=== PATIENT | female | born 1960 | race Caucasian/White ===

== ENCOUNTER 2019-03-06 06:31 | Inpatient (IN) ==
--- NOTE | 2019-02-06 15:59 | PAT Medication Instructions ---
Medication Instructions Date of Service February 06, 2019 Home Medications atorvastatin 5 mg PO PM ferrous sulfate [iron] 325 mg PO Q OTHER DAY fluoxetine 60 mg PO QAM folic acid 400 mcg PO QPM hydroxychloroquine [Plaquenil] 200 mg PO BID lansoprazole 30 mg PO QAM meloxicam 7.5 mg PO QAM oxycodone 5 mg PO Q6H PRN pilocarpine HCl [Salagen (pilocarpine)] 5 mg PO TID pramipexole [Mirapex] 1 mg PO HS sumatriptan succinate 100 mg PO UD PRN ASK your surgeon for instructions meloxicam 7.5 mg PO QAM ASK your prescriber and surgeon hydroxychloroquine [Plaquenil] 200 mg PO BID STOP taking 24 hours before surgery pramipexole [Mirapex] 1 mg PO HS DO NOT take the morning of surgery ferrous sulfate [iron] 325 mg PO Q OTHER DAY folic acid 400 mcg PO QPM Take morning of surgery With a small sip of water, OTHERWISE NOTHING TO EAT OR DRINK AFTER MIDNIGHT: fluoxetine 60 mg PO QAM lansoprazole 30 mg PO QAM oxycodone 5 mg PO Q6H PRN (okay to take up to 4 hours prior to surgery if needed) pilocarpine HCl [Salagen (pilocarpine)] 5 mg PO TID (okay to continue per anesthesiologist, Dr. Lu) sumatriptan succinate 100 mg PO UD PRN (if needed) Take evening before surgery atorvastatin 5 mg PO PM folic acid 400 mcg PO QPM oxycodone 5 mg PO Q6H PRN (if needed) pilocarpine HCl [Salagen (pilocarpine)] 5 mg PO TID sumatriptan succinate 100 mg PO UD PRN (if needed) Other Notes If you have any questions please call us at [phone] or [phone] or [phone] or [phone]
--- NOTE | 2019-02-07 10:07 | Anesthesiology Consultation ---
Date of Service February 07, 2019 Assessment & Plan (1) Encounter for pre-operative examination: - Pilocarpine- patient taking this for Sjogren's. Discussed with Dr. Lu: okay for patient to continue uninterrupted perioperatively. Chart Review Chart Review: Pending: Refer to Additional Notes / Consult section (pending preop testing (labs, EKG, CXR)) and Patient seen in Pre Admission Testing Teaching & Discussion Pre-Anesthesia Teaching/Discussion Notes: Instructed NPO after midnight before surgery,except medications with 15 cc of water. Medication instructions provided according to the PAT guidelines. History Surgery Operation Date: 03/06/19 07:00 Proposed Procedures p Bilateral Total Knee Arthroplasty - John Russo DO Height/Weight Height: 5 ft 3.5 in Weight: 85.8 kg Allergies Allergy/AdvReac Type Severity Reaction Status Date / Time strawberry Allergy Anaphylaxis Verified 01/31/19 10:02 Sulfa (Sulfonamide Allergy Unknown Verified 01/31/19 09:47 Antibiotics) Medications Home Medications Medication Instructions Recorded Confirmed Last Taken atorvastatin 5 mg PO PM 01/31/19 01/31/19 Unknown ferrous sulfate [iron] 325 mg PO Q OTHER DAY 01/31/19 01/31/19 Unknown fluoxetine 60 mg PO QAM 01/31/19 01/31/19 Unknown folic acid 400 mcg PO QPM 01/31/19 01/31/19 Unknown hydroxychloroquine [Plaquenil] 200 mg PO BID 01/31/19 01/31/19 Unknown lansoprazole 30 mg PO QAM 01/31/19 01/31/19 Unknown meloxicam 7.5 mg PO QAM 01/31/19 01/31/19 Unknown oxycodone 5 mg PO Q6H PRN 01/31/19 01/31/19 Unknown pilocarpine HCl [Salagen 5 mg PO TID 01/31/19 01/31/19 Unknown (pilocarpine)] pramipexole [Mirapex] 1 mg PO HS 01/31/19 01/31/19 Unknown sumatriptan succinate 100 mg PO UD PRN 01/31/19 01/31/19 Unknown Past Medical History Medical History Factor V Leiden Discovered due to family history (diagnosed in daughter 2/2 workup for multiple miscarriages)- no personal bleeding/clotting issues; on folic acid GERD (gastroesophageal reflux disease) controlled [place] (hard of hearing) History of skin cancer s/p excision Hyperlipidemia Migraine Obesity Osteoarthritis Restless leg syndrome Sjogren's disease on pilocarpine/plaquenil Sleep apnea CPAP Exercise / Class Metabolic Activity II 4-5 Yardwork/Stairs/Walk up hill Past Family History Family History Brother Family history of diabetes mellitus Sister Family history of diabetes mellitus Grandmother (Paternal) Family history of diabetes mellitus Mother Throat cancer Past Surgical History Surgical History H/O hysterectomy with unilateral oophorectomy History of colonoscopy History of esophagogastroduodenoscopy (EGD) History of eye surgery Rt History of tubal ligation Status post myringotomy with insertion of tube Past Anesthesia History No Family Hx of Anesthesia Complications and Other "Slow to wake" x 1 episode with tubal ligation. History of PONV No Hx of PONV and Hx of Motion Sickness Social History Smoking Status: Never smoker Do You Dip or Chew Tobacco: No Hx Alcohol Use: Yes alcohol intake frequency: holidays/special occasions only Hx Substance Use: No substance use type: does not use Review of Systems Reflux controlled. Patient denies chest pain, shortness of breath, dyspnea on exertion, cough, wheezing, palpitations. Physical Exam Vital Signs VITALS BP 137/82 P 73 TEMP 97.9 SP02 96%RA RESP 16 PHYSICAL Mildly decreased cervical extension. Full TMJ range of motion. TMD 3 finger breaths Mallampati Score 3 Dentition: several missing side/molars, upper front right tooth "thin" but not loose Lungs: clear throughout to auscultation Cardiac: regular rate and rhythm, no murmurs noted Spine: normal Carotid arteries: negative bruit Extremities: no edema
--- NOTE | 2019-02-07 11:23 | XRay Report ---
XR chest Pre-admission PA/Lat HISTORY: Preop. COMPARISON: None. FINDINGS: The lungs are clear. Cardiac silhouette is normal in size. No pleural effusions. No pneumot horax. IMPRESSION: No acute process. Electronically signed by: David Taylor M.D. 02/07/2019 11:22 AM
--- NOTE | 2019-02-07 13:09 | History & Physical Report ---
Date of Service February 07, 2019 date of surgery: 03-06-19 Assessment & Plan (1) Bilateral primary osteoarthritis of knee: Risks and benefits of procedure discussed in detail today, patient would like to proceed with Bilateral total knee replacements at [facility] as scheduled. will obtain medical clearance prior to surgery as well as obtain PATs at [facility]. Will place on Xarelto x 1 month post op, f/u 2 weeks post op for routine post-operative care and x-ray, sooner if having any problems. will make arrangements for HHPT at the time of discharge. At this point in time, has failed conservative measures and would like to proceed with surgical intervention. History of Present Illness Chief Complaint: bilateral knee pain Primary Care Provider: Alexi Montaño Ms Hernandez is a 58 year old female who complains of bilateral knee pain, presents for pre-op evaluation prior to bilateral total knee replacements at [facility]. She presents with pain and decreased range of motion in both of her knees. She states that the symptoms have been chronic non-traumatic and the symptoms occur intermittently. Currently the patient states that the symptoms are moderate-severe. The pain is described as aching, sharp and throbbing. The symptoms occur intermittently. She rates her current pain as 7/10. The symptoms are aggravated by ascending stairs, descending stairs, daily activities, driving, first steps while awake, kneeling, movement, repetitive activities, sleeping in any position, squatting, standing and walking. In addition to knee pain, she is also experiencing decreased mobility, difficulty bending, difficulty going to sleep, limping, nighttime awakening, pain, stiffness, tenderness and weakness. Prior NSAIDs include Mobic and naproxen. She has been treated with a corticosteroid injection on the right and left side equally. Patient has been treated with previous visco supplementation. Allergies Allergy/AdvReac Type Severity Reaction Status Date / Time strawberry Allergy Anaphylaxis Verified 01/31/19 10:02 Sulfa (Sulfonamide Allergy Unknown Verified 01/31/19 09:47 Antibiotics) Home Medications Home Medications Medication Instructions Recorded Confirmed Type atorvastatin 5 mg PO PM 01/31/19 01/31/19 History ferrous sulfate [iron] 325 mg PO Q OTHER DAY 01/31/19 01/31/19 History fluoxetine 60 mg PO QAM 01/31/19 01/31/19 History folic acid 400 mcg PO QPM 01/31/19 01/31/19 History hydroxychloroquine [Plaquenil] 200 mg PO BID 01/31/19 01/31/19 History lansoprazole 30 mg PO QAM 01/31/19 01/31/19 History meloxicam 7.5 mg PO QAM 01/31/19 01/31/19 History oxycodone 5 mg PO Q6H PRN 01/31/19 01/31/19 History pilocarpine HCl [Salagen 5 mg PO TID 01/31/19 01/31/19 History (pilocarpine)] pramipexole [Mirapex] 1 mg PO HS 01/31/19 01/31/19 History sumatriptan succinate 100 mg PO UD PRN 01/31/19 01/31/19 History Past Med/Surg History Medical History Factor V Leiden Discovered due to family history (diagnosed in daughter 2/2 workup for multiple miscarriages)- no personal bleeding/clotting issues; on folic acid GERD (gastroesophageal reflux disease) controlled [place] (hard of hearing) History of skin cancer s/p excision Hyperlipidemia Migraine Obesity Osteoarthritis Restless leg syndrome Sjogren's disease on pilocarpine/plaquenil Sleep apnea CPAP Surgical History H/O hysterectomy with unilateral oophorectomy History of colonoscopy History of esophagogastroduodenoscopy (EGD) History of eye surgery Rt History of tubal ligation Status post myringotomy with insertion of tube Family History Brother Family history of diabetes mellitus Sister Family history of diabetes mellitus Grandmother (Paternal) Family history of diabetes mellitus Mother Throat cancer Social History Preferred Language: Bulgarian Communication Ability: Effective Soap Press Feeder Required: No Beliefs That Will Affect Care: Faith Faith Beliefs: Religious Current Living Situation: Spouse Other Information That Helps Us Care for You: No Feels Safe at Home: Yes Safety Concerns: Feels Safe At This Time Smoking Status: Never smoker Do You Dip or Chew Tobacco: No ; Second Hand Exposure: Yes (as a child) ; Hx Alcohol Use: Yes Hx Substance Use: No Review of Systems Review of Systems: All systems reviewed & are unremarkable except as noted in HPI & below Constitutional: no fever, no chills and no sweats Respiratory: no cough and no dyspnea Cardiovascular: no chest pain, no dyspnea and no orthopnea Gastrointestinal: no abdominal pain, no nausea and no vomiting Musculoskeletal: as per Subjective / HPI Physical Exam Physical Exam: HT: 5ft 3in Wt: 85.8kg BP: 130/88 Pulse: 72 Constitutional: WD/WN, vitals as above no acute distress Respiratory: normal respiratory effort, lungs clear to auscultation no respiratory distress, no labored breathing and does not use accessory muscles Cardiovascular: RRR, no murmur, no edema Gastrointestinal (Abdomen): normal bowel sounds, soft, nontender, no hepatosplenomegaly Musculoskeletal: Bilateral knee Physical exam- she has neutral alignment bilaterally, there is no atrophy or ecchymosis noted, she does have +1 effusion in both of her knees, she has tenderness to both medial and lateral joint lines to her right knee, more medial sided tenderness to the left knee. negative patellar apprehension, she does have crepitation noted to both knees with active ROM. bilateral knees stable to valgus and varus stress, ayse negative, posterior drawer negative. Range of motion right knee 0/3/110, left knee 0/3/115. her lower extremities are neurovascularly intact, calf soft and non tender, DP pulse +2 bilaterally. Results & Data Laboratory Results Laboratory Results WBC 6.43 K/uL (4.8-10.8) 02/07/19 10:51 RBC 5.01 M/uL (4.2-5.4) 02/07/19 10:51 Hgb 14.0 g/dL (12.0-16.0) 02/07/19 10:51 Hct 43.4 % (37-47) 02/07/19 10:51 MCV 86.6 fL (80-100) 02/07/19 10:51 MCH 27.9 pg (25-34) 02/07/19 10:51 MCHC 32.3 g/dL (32-36) 02/07/19 10:51 RDW Std Deviation 43.0 fL (36.4-46.3) 02/07/19 10:51 RDW Coeff of Ruby 13.6 % (11.5-14.5) 02/07/19 10:51 Plt Count 272 K/uL (130-400) 02/07/19 10:51 MPV 10.6 fL (7.4-10.4) H 02/07/19 10:51 Immature Gran % (Auto) 0.3 % 02/07/19 10:51 Neut % (Auto) 65.9 % 02/07/19 10:51 Lymph % (Auto) 19.3 % 02/07/19 10:51 Rich % (Auto) 7.3 % 02/07/19 10:51 Eos % (Auto) 6.4 % 02/07/19 10:51 Baso % (Auto) 0.8 % 02/07/19 10:51 Immature Gran # (Auto) 0.02 K/uL (0.00-0.02) 02/07/19 10:51 Neut # (Auto) 4.24 K/uL (1.4-6.5) 02/07/19 10:51 Lymph # (Auto) 1.24 K/uL (1.2-3.4) 02/07/19 10:51 Rich # (Auto) 0.47 K/uL (0.11-0.59) 02/07/19 10:51 Eos # (Auto) 0.41 K/uL (0-0.5) 02/07/19 10:51 Baso # (Auto) 0.05 K/uL (0-0.2) 02/07/19 10:51 PT 10.4 Seconds (9.0-12.0) 02/07/19 10:51 INR 1.0 (0.9-1.1) 02/07/19 10:51 APTT 27.2 Seconds (21.0-31.0) 02/07/19 10:51 PTT Ratio 1.0 02/07/19 10:51 Sodium 140 mmol/L (136-145) 02/07/19 10:51 Potassium 3.7 mmol/L (3.5-5.1) 02/07/19 10:51 Chloride 105 mmol/L (98-107) 02/07/19 10:51 Carbon Dioxide 32 mmol/L (21-32) 02/07/19 10:51 Anion Gap 3.0 (3-11) 02/07/19 10:51 BUN 26 mg/dl (7-18) H 02/07/19 10:51 Creatinine 0.81 mg/dl (0.6-1.2) 02/07/19 10:51 Est Cr Clr Drug Dosing 77.5 ml/min 02/07/19 10:51 Est GFR ( Amer) 91.5 02/07/19 10:51 Est GFR (Non-Af Amer) 78.9 02/07/19 10:51 BUN/Creatinine Ratio 32.0 (10-20) H 02/07/19 10:51 Glucose 88 mg/dl (70-99) 02/07/19 10:51 Estimat Average Glucose 126 mg/dl 02/07/19 10:51 Hemoglobin A1c 6.0 % (4.5-5.6) H 02/07/19 10:51 Calcium 9.0 mg/dl (8.5-10.1) 02/07/19 10:51 Albumin 3.5 gm/dl (3.4-5.0) 02/07/19 10:51 Urine Color Yellow 02/07/19 10:51 Urine Appearance Clear (Clear) 02/07/19 10:51 Urine pH 6.5 (4.5-7.5) 02/07/19 10:51 Ur Specific [place] 1.023 (1.000-1.030) 02/07/19 10:51 Urine Protein Negative (Negative) 02/07/19 10:51 Urine Glucose (UA) Negative (Negative) 02/07/19 10:51 Urine Ketones Negative (Negative) 02/07/19 10:51 Urine Blood Negative (Negative) 02/07/19 10:51 Urine Nitrite Negative (Negative) 02/07/19 10:51 Urine Bilirubin Negative (Negative) 02/07/19 10:51 Urine Urobilinogen Negative (Negative) 02/07/19 10:51 Ur Leukocyte Esterase Negative (Negative) 02/07/19 10:51 Blood Type O Positive 02/07/19 10:51 Antibody Screen NEGATIVE 02/07/19 10:51 Diagnostic Findings Bilateral knee x-rays from December 2018 showing complete loss joint space medial compartments bilateral knees with overall varus alignment, there is also narrowing of the lateral compartment and patellofemoral joint. there is osteophyte formation, subchondral sclerosis noted, no loose bodies, no acute bony pathology. overall impression tricompartmental degenerative changes to the right knee.
[2019-02-07 13:15] LABS: Basophils # (auto) 0.05 K/uL (0-0.2); Basophils % (auto) 0.8 %; Eosinophils # (auto) 0.41 K/uL (0-0.5); Eosinophils % (auto) 6.4 %; Hematocrit (blood only) 43.4 % (37-47); Immature Granulocytes # (auto) 0.02 K/uL (0.00-0.02); Immature Granulocytes % (auto) 0.3 %; Lymphocytes # (auto) 1.24 K/uL (1.2-3.4); Lymphocytes % (auto) 19.3 %; Mean Corpuscular Hemoglobin 27.9 pg (25-34); Mean Corpuscular Hgb Conc 32.3 g/dL (32-36); Mean Corpuscular Volume 86.6 fL (80-100); Mean Platelet Volume 10.6 fL (7.4-10.4); Monocytes # (auto) 0.47 K/uL (0.11-0.59); Monocytes % (auto) 7.3 %; Neutrophils # (auto) 4.24 K/uL (1.4-6.5); Neutrophils % (auto) 65.9 %; Platelet Count 272 K/uL (130-400); RDW Coefficient of Variation 13.6 % (11.5-14.5); Red Blood Count 5.01 M/uL (4.2-5.4); White Blood Count 6.43 K/uL (4.8-10.8)
[2019-02-07 13:16] LABS: Appearance Urine Clear (Clear); Bilirubin Urine Negative (Negative); Blood Urine Negative (Negative); Color Urine Yellow; Glucose Urine UA Negative (Negative); Ketones Urine Negative (Negative); Leukocyte Esterase Urine Negative (Negative); Nitrite Urine Negative (Negative); Protein Urine Negative (Negative); Specific Gravity Urine 1.023 (1.000-1.030); Urobilinogen Urine Negative (Negative); pH Urine 6.5 (4.5-7.5)
[2019-02-07 13:24] LABS: Albumin Level 3.5 gm/dl (3.4-5.0); Creatinine Clr Calc Pharmacy 77.5 ml/min; Est GFR (African American) 91.5; Est GFR (Non-African American) 78.9; Potassium 3.7 mmol/L (3.5-5.1)
[2019-02-07 13:26] LABS: Partial Thromboplastin Time 27.2 Seconds (21.0-31.0); Prothrombin Time 10.4 Seconds (9.0-12.0)
[2019-02-07 13:32] LABS: Estimated Average Glucose 126 mg/dl
[~2019-03-06 06:31] MED LIST: ACETAMINOPHEN 500 MG TAB PO SCH; BUPIVACAINE 0.5 % 5 MG/1 ML PF 10ML VIAL ONE; BUPIVACAINE/EPINEPHRINE 0.25% 1:200,000 30 ML VIAL ONE; CEFAZOLIN 2000MG 2,000 MG/15 ML SYR IV SCH; FAMOTIDINE 20 MG TAB PO SCH; GABAPENTIN 600 MG DOSE PO SCH; LR 500ML BOLUS, THEN 15ML/HR IV SCH; METOCLOPRAMIDE HCL 10 MG TABLET PO SCH; ROPIVACAINE 0.5% HCL/PF 150 MG, BUPIVACAINE 0.5% MPF 30 ML, EPINEPHrine 30MG/30ML (OR U... INSTIL SCH; dexAMETHasone 4 MG TAB PO SCH
[2019-03-06] MEDS ORDERED: ONDANSETRON INJ 2 MG/ML 2 ML VIAL ONE (06:51)
[2019-03-06] MEDS ORDERED: LIDOCAINE HCL 2% 2 ML VIAL/AMP(20MG/ML) INFIL ONE ×2 (06:51→09:14)
[2019-03-06] MEDS ORDERED: MIDAZOLAM HCL 1 MG/ML 2ML VIAL ONE ×2 (06:52→08:28)
[2019-03-06] MEDS ORDERED: PROPOFOL IV EMULSION 10 MG/ML 20 ML VIAL IV ONE ×2 (06:52→09:14)
[2019-03-06] MEDS ORDERED: fentaNYL citrate 100 MCG/2 ML VIAL ONE (06:52)
[2019-03-06] MEDS ORDERED: TRANEXAMIC ACID 1,000 MG in 0.9 % SODIUM CHLORIDE 100 ML IV ONE ×2 (07:04→07:15)
[2019-03-06] MEDS ORDERED: ORTHO JOINT ANESTHETIC ONE (07:05)
[2019-03-06] MEDS ORDERED: BACITRACIN INJ 50,000 UNIT VIAL ONE (07:06)
--- NOTE | 2019-03-06 07:06 | History & Physical Bridge Note ---
Date of Service March 06, 2019 History & Physical Bridge Note I have examined the patient, reviewed the History & Physical and in the interval since the performance of the History & Physical I have noted the following changes of clinical significance: no changes noted
[2019-03-06] MEDS ORDERED: fentaNYL citrate 100 MCG/2 ML VIAL IV PRN (07:33)
[2019-03-06] MEDS ORDERED: ePHEDrine sulfate 50 MG/ML AMP IV PRN (07:33)
[2019-03-06] MEDS ORDERED: ATROPINE SULFATE 0.1 MG/ML 10ML SYR IV PRN (07:33)
[2019-03-06] MEDS ORDERED: HYDROmorphone INJ 1 MG/ML SYRINGE IV PRN (07:33)
[2019-03-06] MEDS ORDERED: ONDANSETRON INJ 2 MG/ML 2 ML VIAL IV PRN ×2 (07:33→12:47)
--- NOTE | 2019-03-06 10:07 | Operative Report ---
Post Operative Report Pre & Post Diagnosis Operation Date: 03/06/19 08:20 Pre-Op Diagnosis: Primary Osteoarthritis, Bilateral Knees Post-Op Diagnosis: Primary Osteoarthritis, Bilateral Knees I identified the patient and participated in the time-out.: Yes Procedure Operation Date: 03/06/19 08:20 Actual Procedures p Bilateral Total Knee Arthroplasty(Bilateral) utilizing [employer] journey 2 patient matched total knee arthroplasty right size 5 femur 3 tibia 11 polyethylene 29 oval patella left size 5 femur 3 tibia 10 polyethylene 29 oval patella- John Russo DO Surgeon John Russo DO [employer] Aurelio JEAN BAPTISTE Estimated Blood Loss 10 (5ml right knee, 5ml left knee) Findings Consistent with Post-Op Diagnosis Patient presents with severe end-stage tricompartmental degenerative joint disease bilateral knees varus alignment subchondral bone sclerosis with marginal osteophyte subchondral cystic changes moderate to large effusions varus alignment no response to conservative management Specimens Bone and cartilage Drains Medium bore Hemovac Complications none Disposition Accompanied Patient To Recovery: No Disposition: Recovery Room Indications Patient presents with bilateral severe end-stage DJD no response to conservative management for bilateral total knee arthroplasty she had the above intraoperative findings noted she is failed attempted corticosteroid injections Visco supplementation relative rest activity modification and bracing she presents for total knee arthroplasty bilaterally Description of Procedure After proper prepping and draping and verification of the patientAfter proper prepping and draping of the bilateral lower extremities, an anterior midline i ncision was made over the region of the extensor extensor mechanism of the left knee. After meticulous hemostasis was obtained and maintained in subcutaneous tissues a medial parapatellar incision was made The patella was subluxed lateralward the medial lateral gutter were cleaned from any hypertrophic synovitis and scar tissue of the distal femoral block was placed and the distal femoral osteotomy cut was made subsequently the chamfers anterior and posterior osteotomy cuts were made utilizing the 4-in-1 block the tibia was subsequently subluxed anteriorward medial and ateral meniscal remnants were excised in their entirety remnants of the anterior and posterior cruciate ligaments were excised in their entirety excellent exposure of the proximal tibia was obtained the tibial osteotomy guide was placed on the proximal tibial osteotomy cut was made once again the knee was irrigated with copious amounts of sterile saline solution the patella was subsequently everted lateralward thickened scar tissue around the patella was removed the patella was subsequently cut utilizing a freehand technique and was drilled prepared for final preparation and placement of patella socially flexion-extension gaps were checked and the equal and symmetric trials were placed to the appropriate femoral and tibial trials with poly-spacer being placed for equal flexion and extension gaps and full range of motion including extension to 0 and flexion to 140 the trial components after having been taken to recovery range of motion was subsequently removed meticulous hemostasis was obtained and maintained subsequently a knee block injection of joint cocktail including ropivacaine 0.5% 150 mg. Bupivacaine 0.5% epinephrine 1-200,030 mL's toradol 30 mg dexamethasone 4 mg ketamine 10 mg clonidine 100 micrograms normal saline solution 30 mg was infiltrated into the soft tissues of the posterior knee medial lateral gutters and periosteal synovium special attention was paid to protect neurovascular structures at all times subsequently trial components having been removed the knee was irrigated with sterile saline solution. debris was removed the proximal tibia was subsequently prepared and was made ready for the placement of the tibial component tibial component was also cemented and tamped into position the femoral component was subsequently placed and cemented in the position the patellar component was subsequently cemented in position because hemostasis once again obtained and maintained wound having been thoroughly irrigated with debridement and debridement lavage was performed as well as a medial parapatellar incision closed with #1 Vicryl in interrupted fashion subcutaneous was closed with #2 Vicryl skin was closed with skin clips Next, an anterior midline incision was made over the region of the extensor extensor mechanism of the right knee. After meticulous hemostasis was obtained and maintained in subcutaneous tissues a medial parapatellar incision was made The patella was subluxed lateralward the medial lateral gutter were cleaned from any hypertrophic synovitis and scar tissue of the distal femoral block was placed and the distal femoral osteotomy cut was made subsequently the chamfers anterior and posterior osteotomy cuts were made utilizing the 4-in-1 block the tibia was subsequently subluxed anteriorward medial and ateral meniscal remnants were excised in their entirety remnants of the anterior and posterior cruciate ligaments were excised in their entirety excellent exposure of the proximal tibia was obtained the tibial osteotomy guide was placed on the proximal tibial osteotomy cut was made once again the knee was irrigated with copious amounts of sterile saline solution the patella was subsequently everted lateralward thickened scar tissue around the patella was removed the patella was subsequently cut utilizing a freehand technique and was drilled prepared for final preparation and placement of patella socially flexion-extension gaps were checked and the equal and symmetric trials were placed to the appropriate femoral and tibial trials with poly-spacer being placed for equal flexion and extension gaps and full range of motion including extension to 0 and flexion to 140 the trial components after having been taken to recovery range of motion was subsequently removed meticulous hemostasis was obtained and maintained subsequently a knee block injection of joint cocktail including ropivacaine 0.5% 150 mg. Bupivacaine 0.5% epinephrine 1-200,030 mL's toradol 30 mg dexamethasone 4 mg ketamine 10 mg clonidine 100 micrograms normal saline solution 30 mg was infiltrated into the soft tissues of the posterior knee medial lateral gutters and periosteal synovium special attention was paid to protect neurovascular structures at all times subsequently trial components having been removed the knee was irrigated with sterile saline solution. debris was removed the proximal tibia was subsequently prepared and was made ready for the placement of the tibial component tibial component was also cemented and tamped into position the femoral component was subsequently placed and cemented in the position the patellar component was subsequently cemented in position because hemostasis once again obtained and maintained wound having been thoroughly irrigated with debridement and debridement lavage was performed as well as a medial pa rapatellar incision closed with #1 Vicryl in interrupted fashion subcutaneous was closed with #2 Vicryl skin was closed with skin clips.. PA-C was necessary for prepping and drapping as well as wound closure of deep fascia Sub cutaneous tissue and skin and was necessary for the case. A sterile compressive dressings were placed, patient was taken to recovery in stable condition of report dictated by Karan I attest to the content of the Intraoperative Record and any orders documented therein. Any exceptions are noted below. I attest to the content of the Intraoperative Record and any orders documented therein. Any exceptions are noted below.
--- NOTE | 2019-03-06 11:32 | XRay Report ---
XR knee RT 1 or 2V routine, XR knee LT 1 or 2V routine HISTORY: 58 years-old Female Surgical Post Op bilateral knee total joint arthroplasty COMPARISON: None available TECHNIQUE: 2 views of the bilateral knees FINDINGS: RIGHT: Total joint arthroplasty and patella resurfacing with satisfactory positioning. Expected postsurgical soft tissue swelling and deep tissue air with surgical drainage catheter. No acute fracture or defin ite retained foreign body identified. LEFT: Total joint arthroplasty and patella resurfacing with satisfactory alignment. Expected postsurgical s oft tissue swelling and deep tissue air with surgical drainage catheter. No acute fracture or definit e opaque foreign body identified. IMPRESSION: Satisfactory alignment of the bilateral knee total joint arthroplasties. The above report was generated using voice recognition software. It may contain grammatical, syntax o r spelling errors. Electronically signed by: Kirby Thompson M.D. 03/06/2019 11:30 AM
--- NOTE | 2019-03-06 11:36 | Anesthesiology Progress Note ---
Date of Service March 06, 2019 Anesthesia Post Procedure Vital Signs Vital Signs: Temp Pulse Pulse Resp BP Pulse Ox 03/06/19 11:35 36.3 C L 71 18 116/64 98 03/06/19 11:25 71 16 102/57 L 96 03/06/19 11:15 70 15 104/66 99 03/06/19 11:05 76 15 120/59 L 94 03/06/19 10:56 36.3 C L 86 16 102/55 L 94 03/06/19 06:56 37 C 67 18 145/86 H 95 Pain Intensity Bilateral Knee: Pain Intensity: 0 Transfer of Care Handoff Completed per policy Notes Mental Status: alert / awake / arousable and participated in evaluation Patient Amnestic to Procedure: Yes Nausea / Vomiting: adequately controlled Pain: adequately controlled Airway Patency, RR, SpO2: stable & adequate BP & HR: stable & adequate Hydration State: stable & adequate Anesthetic Complications: no major complications apparent and Pt Satisfied with anesthetic care
[2019-03-06] MEDS ORDERED: NALOXONE HCL 0.4 MG/1 ML VIAL/CARP IV PRN (12:47)
[2019-03-06] MEDS ORDERED: HYDROmorphone INJ 0.5 MG/0.5 ML SYR IV PRN (12:47)
[2019-03-06] MEDS ORDERED: SUMAtriptan succinate 100 MG TAB PO PRN (12:47)
[2019-03-06] MEDS ORDERED: BISACODYL 10 MG SUPP PR PRN (12:47)
[2019-03-06] MEDS ORDERED: MAGNESIUM HYDROXIDE SUSP 30 ML UDC PO PRN (12:47)
[2019-03-06] MEDS: SODIUM CHLORIDE 0.9% 1000ML 1,000 ML IV SCH ×2 (13:18→21:32)
[2019-03-06] MEDS: ACETAMINOPHEN 500 MG TAB PO SCH ×2 (14:20→21:32)
[2019-03-06] MEDS: PILOCARPINE HCL 5 MG TABLET PO SCH ×2 (14:32→21:29)
[2019-03-06] MEDS: CEFAZOLIN 2000MG 2,000 MG/15 ML SYR IV SCH (16:21)
[2019-03-06] MEDS: OXYCODONE HCL IR 5 MG TAB (IMMEDIATE RELEASE) PO PRN ×2 (17:18→22:47)
[2019-03-06] MEDS: FERROUS GLUCONATE 324 MG TAB PO SCH (18:23)
[2019-03-06] MEDS: ATORVASTATIN 10 MG TAB PO SCH (21:28)
[2019-03-06] MEDS: FOLIC ACID 400 MCG TAB PO SCH (21:28)
[2019-03-06] MEDS: SENNA 8.6 MG TAB PO SCH (21:28)
[2019-03-06] MEDS: PRAMIPEXOLE DIHYDROCHLO 0.5 MG TAB PO SCH (21:29)
[2019-03-06] MEDS: DOCUSATE SODIUM 100 MG CAP PO SCH (21:32)
[2019-03-07] MEDS: CEFAZOLIN 2000MG 2,000 MG/15 ML SYR IV SCH (00:34)
[2019-03-07] MEDS: OXYCODONE HCL IR 5 MG TAB (IMMEDIATE RELEASE) PO PRN ×6 (03:35→23:48)
[2019-03-07 05:37] LABS: Hematocrit (blood only) 29.3 % (37-47); Hemoglobin 9.7 g/dL (12.0-16.0); Mean Corpuscular Hemoglobin 28.6 pg (25-34); Mean Corpuscular Hgb Conc 33.1 g/dL (32-36); Mean Corpuscular Volume 86.4 fL (80-100); Mean Platelet Volume 9.9 fL (7.4-10.4); Platelet Count 230 K/uL (130-400); RDW Coefficient of Variation 13.3 % (11.5-14.5); RDW Standard Deviation 42.5 fL (36.4-46.3); Red Blood Count 3.39 M/uL (4.2-5.4); White Blood Count 12.51 K/uL (4.8-10.8)
[2019-03-07] MEDS: ACETAMINOPHEN 500 MG TAB PO SCH ×3 (05:58→21:08)
[2019-03-07 06:02] LABS: Calcium 8.3 mg/dl (8.5-10.1); Creatinine Clr Calc Pharmacy 75.3 ml/min; Est GFR (African American) 88.8; Est GFR (Non-African American) 76.6
--- NOTE | 2019-03-07 07:02 | Orthopedic Progress Note ---
Date of Service March 07, 2019 Assessment & Plan (1) Status post total bilateral knee replacement: POD #1 s/p Bilateral TKA pt/ot dvt proph with JASMIN/SCD/Xarelto plan for d/c home with home health when stable Subjective POD #1 s/p bilateral total knee replacements Review of Systems Review of Systems: All systems reviewed & are unremarkable except as noted in HPI & below Constitutional: no fever, no chills and no sweats Respiratory: no cough and no dyspnea Cardiovascular: no chest pain, no dyspnea and no orthopnea Gastrointestinal: no nausea and no vomiting Physical Exam Physical Exam: Vital Signs Temp 36.7 C 03/07/19 04:05 Pulse 93 H 03/07/19 04:05 Resp 16 03/07/19 04:05 BP 130/82 03/07/19 04:05 Pulse Ox 94 03/07/19 04:05 Intake & Output 03/06/19 03/07/19 03/07/19 18:59 06:59 18:59 Intake Total 2520 / 4473.333 1953.333 / 4473.33 3 Output Total 810 / 2805 1995 / 2805 Balance 1710 / 1668.333 -41.667 / 1668.333 Weight 86.863 kg Intake: IV 700 / 2353.333 1653.333 / 2353.33 3 Lr 1,000 ml @ 15 mls/hr IV . 700 / 700 Q24H [place] Rx#:[id number] Nss 1000ML 1,0 00 ml @ 100 mls/ 1653.333 / 1653.33 3 hr IV .Q10H SC H Rx#:[id number] IV Perioperative 1200 / 1200 Oral 620 / 920 300 / 920 Output: Urine 1200 / 1200 Estimated Blood Loss 5 / 5 Drain Output 805 / 1600 795 / 1600 Left Knee 335 / 720 385 / 720 Right Knee 470 / 880 410 / 880 Constitutional: WD/WN, vitals as above no acute distress Musculoskeletal: bilateral lower extremities: NVDI, calf are soft, no tenderness., negative parvin sign. DP palpable, able to wiggle toes/ankle movement without difficulty. CHRIS dressings clean dry and intact. Results & Data Vital Signs (Past 12 Hours) Vital Signs Temp Pulse Resp BP Pulse Ox 03/07/19 04:05 36.7 C 93 H 16 130/82 94 03/07/19 00:00 36.8 C 97 H 16 109/71 94 03/06/19 20:33 36.8 C 102 H 18 118/69 93 Laboratory Results Laboratory Results WBC 12.51 K/uL (4.8-10.8) H 03/07/19 04:45 RBC 3.39 M/uL (4.2-5.4) L 03/07/19 04:45 Hgb 9.7 g/dL (12.0-16.0) L 03/07/19 04:45 Hct 29.3 % (37-47) L 03/07/19 04:45 MCV 86.4 fL (80-100) 03/07/19 04:45 MCH 28.6 pg (25-34) 03/07/19 04:45 MCHC 33.1 g/dL (32-36) 03/07/19 04:45 RDW Std Deviation 42.5 fL (36.4-46.3) 03/07/19 04:45 RDW Coeff of Ruby 13.3 % (11.5-14.5) 03/07/19 04:45 Plt Count 230 K/uL (130-400) 03/07/19 04:45 MPV 9.9 fL (7.4-10.4) 03/07/19 04:45 Immature Gran % (Auto) 0.3 % 02/07/19 10:51 Neut % (Auto) 65.9 % 02/07/19 10:51 Lymph % (Auto) 19.3 % 02/07/19 10:51 Bowie % (Auto) 7.3 % 02/07/19 10:51 Eos % (Auto) 6.4 % 02/07/19 10:51 Baso % (Auto) 0.8 % 02/07/19 10:51 Immature Gran # (Auto) 0.02 K/uL (0.00-0.02) 02/07/19 10:51 Neut # (Auto) 4.24 K/uL (1.4-6.5) 02/07/19 10:51 Lymph # (Auto) 1.24 K/uL (1.2-3.4) 02/07/19 10:51 Bowie # (Auto) 0.47 K/uL (0.11-0.59) 02/07/19 10:51 Eos # (Auto) 0.41 K/uL (0-0.5) 02/07/19 10:51 Baso # (Auto) 0.05 K/uL (0-0.2) 02/07/19 10:51 PT 10.4 Seconds (9.0-12.0) 02/07/19 10:51 INR 1.0 (0.9-1.1) 02/07/19 10:51 APTT 27.2 Seconds (21.0-31.0) 02/07/19 10:51 PTT Ratio 1.0 02/07/19 10:51 Sodium 140 mmol/L (136-145) 03/07/19 04:45 Potassium 4.0 mmol/L (3.5-5.1) 03/07/19 04:45 Chloride 108 mmol/L (98-107) H 03/07/19 04:45 Carbon Dioxide 29 mmol/L (21-32) 03/07/19 04:45 Anion Gap 3.0 (3-11) 03/07/19 04:45 BUN 22 mg/dl (7-18) H 03/07/19 04:45 Creatinine 0.83 mg/dl (0.6-1.2) 03/07/19 04:45 Est Cr Clr Drug Dosing 75.3 ml/min 03/07/19 04:45 Est GFR ( Amer) 88.8 03/07/19 04:45 Est GFR (Non-Af Amer) 76.6 03/07/19 04:45 BUN/Creatinine Ratio 27.0 (10-20) H 03/07/19 04:45 Glucose 168 mg/dl (70-99) H 03/07/19 04:45 Estimat Average Glucose 126 mg/dl 02/07/19 10:51 Hemoglobin A1c 6.0 % (4.5-5.6) H 02/07/19 10:51 Calcium 8.3 mg/dl (8.5-10.1) L 03/07/19 04:45 Albumin 3.5 gm/dl (3.4-5.0) 02/07/19 10:51 Urine Color Yellow 02/07/19 10:51 Urine Appearance Clear (Clear) 02/07/19 10:51 Urine pH 6.5 (4.5-7.5) 02/07/19 10:51 Ur Specific [place] 1.023 (1.000-1.030) 02/07/19 10:51 Urine Protein Negative (Negative) 02/07/19 10:51 Urine Glucose (UA) Negative (Negative) 02/07/19 10:51 Urine Ketones Negative (Negative) 02/07/19 10:51 Urine Blood Negative (Negative) 02/07/19 10:51 Urine Nitrite Negative (Negative) 02/07/19 10:51 Urine Bilirubin Negative (Negative) 02/07/19 10:51 Urine Urobilinogen Negative (Negative) 02/07/19 10:51 Ur Leukocyte Esterase Negative (Negative) 02/07/19 10:51 Blood Type O Positive 02/07/19 10:51 Antibody Screen NEGATIVE 02/07/19 10:51 Diagnostic Findings XR knee RT 1 or 2V routine, XR knee LT 1 or 2V routine HISTORY: 58 years-old Female Surgical Post Op bilateral knee total joint arthroplasty COMPARISON: None available TECHNIQUE: 2 views of the bilateral knees FINDINGS: RIGHT: Total joint arthroplasty and patella resurfacing with satisfactory positioning. Expected postsurgical soft tissue swelling and deep tissue air with surgical drainage catheter. No acute fracture or definite retained foreign body identified. LEFT: Total joint arthroplasty and patella resurfacing with satisfactory alignment. Expected postsurgical soft tissue swelling and deep tissue air with surgical drainage catheter. No acute fracture or definite opaque foreign body identified. IMPRESSION: Satisfactory alignment of the bilateral knee total joint arthroplasties.
[2019-03-07] MEDS: FERROUS GLUCONATE 324 MG TAB PO SCH ×2 (07:30→17:08)
[2019-03-07] MEDS: DOCUSATE SODIUM 100 MG CAP PO SCH ×2 (08:07→21:08)
[2019-03-07] MEDS: PILOCARPINE HCL 5 MG TABLET PO SCH ×3 (08:07→21:06)
[2019-03-07] MEDS: RIVAROXABAN 10 MG TABLET PO SCH (08:07)
[2019-03-07] MEDS: MULTIVITAMIN TAB PO SCH (08:08)
[2019-03-07] MEDS: FLUOXETINE HCL 20 MG CAP PO SCH (08:08)
[2019-03-07] MEDS: PRAMIPEXOLE DIHYDROCHLO 0.5 MG TAB PO SCH (21:06)
[2019-03-07] MEDS: ATORVASTATIN 10 MG TAB PO SCH (21:06)
[2019-03-07] MEDS: SENNA 8.6 MG TAB PO SCH (21:06)
[2019-03-07] MEDS: FOLIC ACID 400 MCG TAB PO SCH (21:06)
[2019-03-07] MEDS ORDERED: SODIUM CHLORIDE 0.9% 1000ML 250 ML IV ONE (23:36)
[2019-03-07] MEDS ORDERED: SODIUM CHLORIDE 0.9% 1000ML 1,000 ML IV SCH (23:45)
[2019-03-08] MEDS: ACETAMINOPHEN 500 MG TAB PO SCH ×2 (05:49→13:26)
[2019-03-08] MEDS: OXYCODONE HCL IR 5 MG TAB (IMMEDIATE RELEASE) PO PRN ×4 (05:51→16:48)
--- NOTE | 2019-03-08 07:02 | Orthopedic Progress Note ---
Date of Service March 08, 2019 Assessment & Plan (1) Status post total bilateral knee replacement: POD #2 s/p Bilateral TKA pt/ot dvt proph with JASMIN/SCD/Xarelto plan for d/c home with home health when stable, recheck after PT today Subjective POD #2 s/p bilateral total knee replacements Review of Systems Constitutional: no fever, no chills and no sweats Respiratory: no cough and no dyspnea Cardiovascular: no chest pain and no dyspnea Gastrointestinal: no abdominal pain, no nausea and no vomiting Physical Exam Physical Exam: Vital Signs Temp Pulse Resp BP Pulse Ox 03/08/19 06:43 36.8 C 113 H 16 169/92 H 97 03/08/19 03:39 115 H 16 154/79 H 93 03/07/19 23:05 37 C 120 H 16 157/76 H 95 03/07/19 15:24 36.8 C 112 H 18 123/70 100 03/07/19 12:39 37.1 C 119 H 18 153/78 H 96 03/07/19 07:10 36.5 C 85 17 129/80 97 Intake and Output 03/07/19 03/08/19 03/08/19 22:59 06:59 14:59 Intake Total 200 / 700 250 / 700 Output Total 125 / 475 Balance 75 / 225 250 / 225 Intake: IV 250 / 250 Nss 1000ML 250 ml @ 999 mls/hr 250 / 250 IV .Q16M ONE R x#:[id number] Oral 200 / 450 Output: Drain Output 125 / 275 Left Knee Hemo vac 50 / 150 Right Knee Hem ovac 75 / 125 Other: # Unmeasured Voi ds 1 Constitutional: WD/WN, vitals as above no acute distress Musculoskeletal: Bilateral lower extremity: NVDI, calf SNT, negative parvin sign. DP palpable, able to wiggle toes/ankle movement without difficulty. Prinea's clean dry and intact. expected post-operative bruising noted. Results & Data Vital Signs (Past 12 Hours) Vital Signs Temp Pulse Resp BP Pulse Ox 03/08/19 06:43 36.8 C 113 H 16 169/92 H 97 03/08/19 03:39 115 H 16 154/79 H 93 03/07/19 23:05 37 C 120 H 16 157/76 H 95
[2019-03-08] MEDS: PILOCARPINE HCL 5 MG TABLET PO SCH ×2 (07:16→13:26)
[2019-03-08] MEDS: FLUOXETINE HCL 20 MG CAP PO SCH (07:16)
[2019-03-08] MEDS: DOCUSATE SODIUM 100 MG CAP PO SCH (07:16)
[2019-03-08] MEDS: MULTIVITAMIN TAB PO SCH (07:17)
[2019-03-08] MEDS: RIVAROXABAN 10 MG TABLET PO SCH (07:17)
[2019-03-08] MEDS: FERROUS GLUCONATE 324 MG TAB PO SCH (07:17)
[2019-03-08 13:21] VITALS: BP 128/75; PULSE 118; TEMP 98.6; O2SAT 94
[2019-03-08 14:01] LABS: Hematocrit (blood only) 27.3 % (37-47); Mean Corpuscular Hemoglobin 28.9 pg (25-34); Mean Corpuscular Volume 87.8 fL (80-100); Mean Platelet Volume 9.1 fL (7.4-10.4); Platelet Count 215 K/uL (130-400); RDW Coefficient of Variation 13.9 % (11.5-14.5); RDW Standard Deviation 44.6 fL (36.4-46.3); Red Blood Count 3.11 M/uL (4.2-5.4)
== END 2019-03-08 17:00 | disposition home health service (06) | DRG 462 ==
LOC: ASU 06:31 → 3E 10:58